=== PATIENT | female | born 1995 | race Caucasian/White ===

== ENCOUNTER 2017-01-26 14:35 | Emergency (ER) | payer OTHER ==
[2017-01-26 15:39] LABS: BASO % 1 % (0-3); EOS # 0.2 x10^3/uL (0.0-0.7); EOS % 2 % (0-3); HEMATOCRIT 38.9 % (36.0-47.0); HEMOGLOBIN 12.7 g/dL (12.0-15.5); LYMPH # 2.7 x10^3/uL (1.0-4.8); LYMPH % 30 % (24-48); MEAN CORPUSCULAR HEMOGLOBIN 27 pg (25-35); MEAN CORPUSCULAR HGB CONC 33 g/dL (31-37); MEAN CORPUSCULAR VOLUME 82 fL (79-100); MONO # 0.6 x10^3/uL (0.0-1.1); MONO % 6 % (0-9); NEUT # 5.4 x10^3uL (1.8-7.7); NEUT % 61 % (31-73); PLATELET COUNT 319 x10^3/uL (140-400); RED BLOOD COUNT 4.75 x10^6/uL (3.50-5.40); RED CELL DISTRIBUTION WIDTH 15.6 % (11.5-14.5); WHITE BLOOD COUNT 8.9 x10^3/uL (4.0-11.0)
[2017-01-26 15:47] LABS: BACTERIA,URINE FEW /HPF (0-FEW); BILIRUBIN,URINE NEG (NEG); CLARITY,URINE HAZY; COLOR,URINE YELLOW; GLUCOSE,URINE NEG (NEG); NITRITE,URINE NEG (NEG); RBC,URINE 0 /HPF (0-2); SQUAMOUS EPITHELIAL CELL,UR OCC /LPF; UROBILINOGEN,URINE 0.2 mg/dL (0.2 mg/dL)
[2017-01-26 15:48] LABS: AMORPHOUS SEDIMENT,UR PRESENT /HPF
--- NOTE | 2017-01-26 16:46 | RAD ---
Examination: Ultrasound abdomen limited History: History of right upper quadrant pain. Comparison: None available Findings: The gallbladder is mildly distended. The liver measures 18.5 cm The right kidney measures 13.4 cm in length The pancreas, IVC, aorta are not well-visualized due to bowel gas and due to patient body habitus. The gallbladder wall thickness measures 2.2 mm. The common bile duct measures 2.9 mm. Impression: 1. Limited examination due to patient body habitus. Grossly no evidence of gallstones identified in the gallbladder.
[2017-01-26 17:09] LABS: ALBUMIN 3.5 g/dL (3.4-5.0); ALBUMIN/GLOBULIN RATIO 0.9 (1.0-1.7); CALCIUM 9.2 mg/dL (8.5-10.1); CREATININE 0.7 mg/dL (0.6-1.0); GFR 106.7; TOTAL BILIRUBIN 0.4 mg/dL (0.2-1.0); TOTAL PROTEIN 7.6 g/dL (6.4-8.2)
--- NOTE | 2017-01-26 17:34 | PHYS DOC ---
Adult General Chief Complaint Chief Complaint: ABDOMINAL PAIN HPI HPI Patient is a 21-year-old female with complaints of upper abdominal pain, patient is concerned she may have some gallstones. Patient has had a recent CT that was read as nothing acute however she was told that she has a minor liver enzymes. Patient is already being worked out for these problems by her PCP and they're arranging for a follow-up with a specialist. Review of Systems Review of Systems Constitutional: Denies fever or chills [] Eyes: Denies change in visual acuity, redness, or eye pain [] HENT: Denies nasal congestion or sore throat [] Respiratory: Denies cough or shortness of breath [] Cardiovascular: No chest pain GI: Denies nausea, vomiting, bloody stools or diarrhea . Upper abdominal pain : Denies dysuria or hematuria [] Musculoskeletal: Denies back pain or joint pain [] Integument: Denies rash or skin lesions [] Neurologic: Denies headache, focal weakness or sensory changes [] Physical Exam Physical Exam Constitutional: Well developed, well nourished, no acute distress, non-toxic appearance. Morbidly obese HENT: Normocephalic, atraumatic, oropharynx moist, no oral exudates, nose normal. [] Eyes: EOMI, conjunctiva normal, no discharge. Anicteric Neck: Normal range of motion, no tenderness, supple, no stridor. [] Cardiovascular:Heart rate regular rhythm, no murmur, equal pulses, normal perfusion Lungs & Thorax: Bilateral breath sounds clear to auscultation, no tachypnea Abdomen: Bowel sounds normal, soft, mild tenderness right upper quadrant and epigastric area without guarding or rebound, no masses, no pulsatile masses. [] Skin: Warm, dry, no erythema, no rash. [] Back: No tenderness, no CVA tenderness. [] Extremities: No tenderness, no cyanosis, no clubbing, ROM intact, no edema. [] Neurologic: Alert and oriented X 3, normal motor function, no focal deficits noted. [] Psychologic: Affect normal, judgement normal, mood normal. [] Current Patient Data Lab Results Laboratory Tests Test 01/26/17 15:15 01/26/17 15:32 01/26/17 16:20 White Blood Count 8.9 x10^3/uL (4.0-11.0) Red Blood Count 4.75 x10^6/uL (3.50-5.40) Hemoglobin 12.7 g/dL (12.0-15.5) Hematocrit 38.9 % (36.0-47.0) Mean Corpuscular Volume 82 fL (79-100) Mean Corpuscular Hemoglobin 27 pg (25-35) Mean Corpuscular Hemoglobin Concent 33 g/dL (31-37) Red Cell Distribution Width 15.6 % (11.5-14.5) H Platelet Count 319 x10^3/uL (140-400) Neutrophils (%) (Auto) 61 % (31-73) Lymphocytes (%) (Auto) 30 % (24-48) Monocytes (%) (Auto) 6 % (0-9) Eosinophils (%) (Auto) 2 % (0-3) Basophils (%) (Auto) 1 % (0-3) Neutrophils # (Auto) 5.4 x10^3uL (1.8-7.7) Lymphocytes # (Auto) 2.7 x10^3/uL (1.0-4.8) Monocytes # (Auto) 0.6 x10^3/uL (0.0-1.1) Eosinophils # (Auto) 0.2 x10^3/uL (0.0-0.7) Basophils # (Auto) 0.0 x10^3/uL (0.0-0.2) Urine Collection Type Unknown Urine Color Yellow Urine Clarity Hazy Urine pH 7.5 Urine Specific [place] 1.020 Urine Protein Neg (NEG-TRACE) Urine Glucose (UA) Neg mg/dL (NEG) Urine Ketones (Stick) 15 mg/dL (NEG) Urine Blood Neg (NEG) Urine Nitrite Neg (NEG) Urine Bilirubin Neg (NEG) Urine Urobilinogen Dipstick 0.2 mg/dL (0.2 mg/dL) Urine Leukocyte Esterase Small (NEG) Urine RBC 0 /HPF (0-2) Urine WBC 5-10 /HPF (0-4) Urine Squamous Epithelial Cells Occ /LPF Urine Amorphous Sediment Present /HPF Urine Bacteria Few /HPF (0-FEW) Urine Mucus Slight /LPF POC Urine HCG, Qualitative hcg negative (Negative) Sodium Level 140 mmol/L (136-145) Potassium Level 4.0 mmol/L (3.5-5.1) Chloride Level 104 mmol/L (98-107) Carbon Dioxide Level 26 mmol/L (21-32) Anion Gap 10 (6-14) Blood Urea Nitrogen 8 mg/dL (7-20) Creatinine 0.7 mg/dL (0.6-1.0) Estimated GFR (Cockcroft-Gault) 106.7 BUN/Creatinine Ratio 11 (6-20) Glucose Level 91 mg/dL (70-99) Calcium Level 9.2 mg/dL (8.5-10.1) Total Bilirubin 0.4 mg/dL (0.2-1.0) Aspartate Amino Transferase (AST) 37 U/L (15-37) Alanine Aminotransferase (ALT) 88 U/L (14-59) H Alkaline Phosphatase 73 U/L (46-116) Total Protein 7.6 g/dL (6.4-8.2) Albumin 3.5 g/dL (3.4-5.0) Albumin/Globulin Ratio 0.9 (1.0-1.7) L Lipase 89 U/L (73-393) EKG EKG [] Radiology/Procedures Radiology/Procedures The gallbladder is mildly distended. The liver measures 18.5 cm The right kidney measures 13.4 cm in length The pancreas, IVC, aorta are not well-visualized due to bowel gas and due to patient body habitus. The gallbladder wall thickness measures 2.2 mm. The common bile duct measures 2.9 mm. Impression: 1. Limited examination due to patient body habitus. Grossly no evidence of gallstones identified in the gallbladder. [] Course & Med Decision Making Course & Med Decision Making Pertinent Labs and Imaging studies reviewed. (See chart for details). Discussed with patient and family they agreed to follow up as directed with PCP [] Dragon Disclaimer Dragon Disclaimer This chart was dictated in whole or in part using Voice Recognition software in a busy, high-work load, and often noisy Emergency Department environment. It may contain unintended and wholly unrecognized errors or omissions. Departure Departure: Impression: Primary Impression: Abdominal pain Disposition: 01 HOME, SELF-CARE Condition: STABLE Referrals: ZEINAB RANKIN DO (PCP) Please follow-up with your PCP in one to 2 days for recheck and reevaluation as well as arrange for specialist consult Patient Instructions: Abdominal Pain (Nonspecific) Kate ROMAN MD Jan 26, 2017 17:34
[2017-01-26 17:42] VITALS: BP 121/66
== END 2017-01-26 17:44 | disposition home or self-care (01) ==
LOC: ER 14:40
DX: R10.11 Right upper quadrant pain (principal); R10.13 Epigastric pain
CPT/HCPCS: 36415; 76705; 80053; 81001; 81025; 83690; 85025; 87086; 99285-25

== ENCOUNTER → 2017-02-10 | Outpatient (CLI) | payer OTHER ==
[2017-01-26 17:42] VITALS: BP 121/66
--- NOTE | 2017-02-10 19:03 | RAD ---
CHEST PA LATERAL History: [id number] Acute bronchitis, chest pain, weakness Comparison: January 01, 2016 Findings: There is a lesser degree of inspiration for this exam. There is no new dependent pleural fluid, lobar consolidation, pneumothorax. Cardiac silhouette is stable, within normal limits. Impression: 1. There is poor inspiration for exam, no new infiltrate identified. Electronically signed by: Federico Keenan MD (02/10/2017 6:59 PM) [facility]
== END | disposition home or self-care (01) ==
LOC: RAD 17:32
PROVIDERS: ATTEND Physician Assistant
DX: J20.8 Acute bronchitis due to other specified organisms (principal); R07.9 Chest pain, unspecified
CPT/HCPCS: 71020

== ENCOUNTER 2017-08-20 19:20 | Emergency (ER) | payer OTHER ==
[~2017-08-20] VITALS: Ht 162.6 cm; Wt 156.4 kg
[2017-08-20] MEDS ORDERED: IPRATRPIUM/ALBUTEROL 0.5/2.5MG 3 ML NEBU. ONE (19:37)
--- NOTE | 2017-08-20 19:40 | PHYS DOC ---
Past History Past Medical History: GERD, Other Past Surgical History: Appendectomy, Tonsillectomy Alcohol Use: None Drug Use: None Adult General Chief Complaint Chief Complaint: SHORTNESS OF BREATH HPI HPI Patient is a 22 year old female who presents with complaint of cough, congestion , and sore throat. Patient states her symptoms have been present over the past 2 days. Patient states that she thought at first she was just having trouble with allergies, however when she woke up today she started having worsening thick green mucus with coughing and stated that she is having worsening shortness of breath. Patient states she does have history of asthma and did take albuterol. Patient states she last tried albuterol at 1500 today with minimal relief. Patient states that she is also having muscle soreness, headache , and low-grade fever. Patient states that her sore throat is her primary symptom compared to the other reported symptoms that is giving her the most trouble. Review of Systems Review of Systems Constitutional: Fever[] Eyes: Denies change in visual acuity, redness, or eye pain [] HENT: Sore throat, nasal congestion[] Respiratory: Cough, wheezing, shortness of breath[] Cardiovascular: Denies chest pain or edema[] GI: Denies abdominal pain, nausea, vomiting, bloody stools or diarrhea [] : Denies dysuria or hematuria [] Musculoskeletal: Myalgias[] Integument: Denies rash or skin lesions [] Neurologic: Headache, denies focal weakness or sensory changes [] All other systems were reviewed and found to be within normal limits, except as documented in this note. Allergies Allergies No known drug allergies Physical Exam Physical Exam Constitutional: Alert, afebrile, morbidly obese, appears in mild to moderate discomfort. [] HENT: Normocephalic, atraumatic, bilateral external ears normal, oropharynx erythematous, no oral exudates, thick rhinorrhea. [] Eyes: PERRLA, EOMI, conjunctiva normal, no discharge. [] Neck: Normal range of motion, no tenderness, supple, no stridor. [] Cardiovascular: Tachycardia, regular rhythm, no murmur [] Lungs & Thorax: Moderately restricted air movement bilaterally, faint extremity wheezes bilaterally, no rales[] Abdomen: Bowel sounds normal, soft, no tenderness, no masses, no pulsatile masses. [] Skin: Warm, dry, no erythema, no rash. [] Back: No tenderness, no CVA tenderness. [] Extremities: No tenderness, no cyanosis, no clubbing, ROM intact, no edema. [] Neurologic: Alert and oriented X 3, normal motor function, normal sensory function, no focal deficits noted. [] Current Patient Data Vital Signs Vital Signs Date Time Temp Pulse Resp B/P (MAP) Pulse Ox O2 Delivery O2 Flow Rate FiO2 08/20/17 19:20 99.1 104 20 98 Room Air Lab Results Laboratory Tests Test 08/20/17 19:09 08/20/17 19:35 08/20/17 19:55 08/20/17 19:58 Bedside Urine HCG, Qualitative hcg negative Influenza Type A (Rapid) Negative Influenza Type B (Rapid) Negative Group A Streptococcus Rapid Negative Urine Collection Type Unknown Urine Color Yellow Urine Clarity Turbid Urine pH 6.0 Urine Specific [place] 1.025 Urine Protein 30 mg/dl Urine Glucose (UA) Neg mg/dL Urine Ketones (Stick) >=160 mg/dL Urine Blood Small Urine Nitrite Neg Urine Bilirubin Neg Urine Urobilinogen Dipstick 1 mg/dL Urine Leukocyte Esterase Small Urine RBC 6-10 /HPF Urine WBC 20-40 /HPF Urine Squamous Epithelial Cells Many /LPF Urine Bacteria Many /HPF Urine Mucus Mod /LPF Current Medications Medications (Trade) Dose Ordered Sig/Josias Route PRN Reason Start Time Stop Time Status Last Admin Dose Admin Albuterol/ Ipratropium (Duoneb) 3 ml STK-MED ONCE .ROUTE 08/20/17 19:37 08/20/17 19:38 DC Dexamethasone (Decadron) 12 mg 1X ONCE PO 08/20/17 20:00 08/20/17 20:01 DC 08/20/17 20:22 Albuterol/ Ipratropium (Duoneb) 3 ml 1X ONCE NEB 08/20/17 20:30 08/20/17 20:31 DC 08/20/17 20:24 Albuterol/ Ipratropium (Duoneb) 3 ml 1X ONCE NEB 08/20/17 20:30 08/20/17 20:31 DC 08/20/17 20:25 EKG EKG Not performed[] Radiology/Procedures Radiology/Procedures Two-view chest x-ray interpreted by me: No infiltrate, no effusions, normal cardiac silhouette[] Course & Med Decision Making Course & Med Decision Making Pertinent Labs and Imaging studies reviewed. (See chart for details) Patient was given 12 mg of oral Decadron and 2 DuoNeb nebulized breathing treatments in the emergency department with improvement in symptoms. Patient's chest x-ray was negative for pneumonia and patient's throat and nasal swabs were both negative. The patient's urinalysis does suggest findings of urinary tract infection given leukocytes and positive leukoesterase. This may be due to contamination as there is a high number of squamous cells. I have agreed to start patient on Keflex for treatment after speaking with the patient. I will also prescribe prednisone for treatment of asthma exacerbation likely due to viral upper respiratory infection. Advise follow-up in 2 days a primary doctor for reevaluation. Recommended return emergency department for any worsening symptoms. Patient was understanding and in agreement with treatment plan. Dragon Disclaimer Dragon Disclaimer This electronic medical record was generated, in whole or in part, using a voice recognition dictation system. Departure Departure: Impression: Primary Impression: Asthma exacerbation Additional Impression: Urinary tract infection Disposition: HOME, SELF-CARE Condition: IMPROVED Referrals: ZEINAB RANKIN DO (PCP) Patient Instructions: Asthma, Adult, Urinary Tract Infection Additional Instructions: Follow-up with your primary doctor in 2 days for reevaluation. You may use your albuterol inhaler 2-4 puffs every 4 hours while awake over the next 2 days, then decrease to 2 puffs every 4 hours as needed after that. Return to emergency department for any worsening symptoms. Scripts Prednisone (PREDNISONE) 10 Mg Tablet 10 MG PO UD for PREDNISONE TAPER, #39 TAB 0 Refills Take 3 tablets by mouth twice a day for 3 days, then take 2 tablets by mouth twice a day for 3 days, then take 1 tablet by mouth twice a day for 3 days, then take 1 tablet by mouth daily x 3 days, then stop. Prov: MONTSE BRADSHAW MD 08/20/17 Cephalexin (KEFLEX) 500 Mg Capsule 1 CAP PO BID, #14 CAP Prov: MONTSE BRADSHAW MD 08/20/17 Problem Qualifiers Primary Impression: Asthma exacerbation Asthma severity: mild Asthma persistence: persistent Qualified Codes: J45.31 - Mild persistent asthma with (acute) exacerbation Additional Impression: Urinary tract infection Urinary tract infection type: site unspecified Hematuria presence: without hematuria Qualified Codes: N39.0 - Urinary tract infection, site not specified MONTSE BRADSHAW MD Aug 20, 2017 19:40
[2017-08-20] MEDS ORDERED: DEXAMETHASONE 4 MG TABLET PO ONE (20:00)
[2017-08-20 20:05] LABS: INFLUENZA A PATIENT NEGATIVE (NEGATIVE); INFLUENZA B PATIENT NEGATIVE (NEGATIVE)
[2017-08-20] MEDS ORDERED: IPRATRPIUM/ALBUTEROL 0.5/2.5MG 3 ML NEBU. NEB ONE ×2 (20:30)
[2017-08-20 20:41] LABS: BILIRUBIN,URINE NEG (NEG); CLARITY,URINE TURBID; COLOR,URINE YELLOW; GLUCOSE,URINE NEG (NEG)
[2017-08-20 20:42] LABS: NITRITE,URINE NEG (NEG); UROBILINOGEN,URINE 1 mg/dL (0.2 mg/dL)
[2017-08-20 20:43] LABS: BACTERIA,URINE MANY /HPF (0-FEW); SQUAMOUS EPITHELIAL CELL,UR MANY /LPF; WBC,URINE 20-40 /HPF (0-4)
[2017-08-20 20:51] VITALS: BP 131/70
[2017-08-20] MEDS ORDERED: PRED-220 PO (21:03)
[2017-08-20] MEDS ORDERED: CEPH-264 PO (21:03)
--- NOTE | 2017-08-21 07:13 | RAD ---
PROCEDURE: CHEST PA LATERAL CLINICAL INDICATION: cough for 2 days COMPARISON: Previous study from 02/10/2017 FINDINGS: No pneumothorax identified. Cardiac and mediastinal contours unremarkable. No pulmonary consolidation or acute airspace disease. No acute osseous abnormalities identified. IMPRESSION: No pulmonary consolidation or acute airspace disease.
== END 2017-08-20 21:06 | disposition home or self-care (01) ==
LOC: ER 19:29
DX: J45.31 Mild persistent asthma with (acute) exacerbation (principal); N39.0 Urinary tract infection, site not specified; K21.9 Gastro-esophageal reflux disease without esophagitis
CPT/HCPCS: 71046; 81001; 81025; 87070; 87086; 87804; 87880; 94640; 99285; J7620; J8540

== ENCOUNTER 2017-09-02 19:51 | Emergency (ER) | payer OTHER ==
[~2017-09-02] VITALS: Ht 162.6 cm; Wt 156.4 kg
[2017-09-02 19:51] VITALS: BP 115/72
[~2017-09-02 19:51] MED LIST: CEPH-264 PO; PRED-220 PO
--- NOTE | 2017-09-02 19:54 | ED.ADGEN ---
Past History Past Medical History: Anxiety, Asthma, Diabetes Past Surgical History: No Surgical History Alcohol Use: None Drug Use: None Adult General Chief Complaint Chief Complaint ".. I was getting treated for a UTI.. but I got some flank pain...>" I ve taken some Keflex for my UTI twice a day for a week.. it was better ..but the symptoms have come back.. " HPI HPI Patient is a 22 year old female who presents with flank pain and just completed a 7 day course of Keflex twice a day . Pt. denies hx of renal stone or family hx of renal stone. Pt. localized discomfort in Lt. lower flank and supra pubic. No vaginal discharge. States no concerns of STD. Pt. denies any travel, travel or ill contacts. Review of Systems Review of Systems Constitutional: Denies fever or chills [] Eyes: Denies change in visual acuity, redness, or eye pain [] HENT: Denies nasal congestion or sore throat [] Respiratory: Denies cough or shortness of breath [] Cardiovascular: No additional information not addressed in HPI [] GI: Denies abdominal pain, nausea, vomiting, bloody stools or diarrhea [] : Complaints of dysuria or hematuria [] Musculoskeletal: Denies back pain or joint pain [] Integument: Denies rash or skin lesions [] Neurologic: Denies headache, focal weakness or sensory changes [] Endocrine: Denies polyuria or polydipsia [] All other systems were reviewed and found to be within normal limits, except as documented in this note. Family History Family History Non- contributory Current Medications Current Medications Current Medications Medications (Trade) Dose Ordered Sig/Josias Start Time Stop Time Status Last Admin Dose Admin Ceftriaxone Sodium (Rocephin Im) 1 gm 1X ONCE 09/02/17 21:30 09/02/17 21:31 DC 09/02/17 21:25 1 GM Ketorolac Tromethamine (Toradol) 60 mg 1X ONCE 09/02/17 21:30 09/02/17 21:31 DC 09/02/17 21:25 60 MG Trimethoprim/ Sulfamethoxazole (Bactrim Ds) 1 tab 1X ONCE 09/02/17 21:30 09/02/17 21:31 DC 09/02/17 21:24 1 TAB Allergies Allergies Allergies Uncoded Allergies Type Severity Reaction Last Updated Verified UNKNOWN Allergy Unknown 08/20/17 Physical Exam Physical Exam Constitutional: mild distress, non-toxic appearance. [] HENT: Normocephalic, atraumatic, bilateral external ears normal, oropharynx moist, no oral exudates, nose normal. [] Eyes: PERRLA, EOMI, conjunctiva normal, no discharge. [] Neck: Normal range of motion, no tenderness, supple, no stridor. [] Cardiovascular:Heart rate regular rhythm, no murmur [] Lungs & Thorax: Bilateral breath sounds clear to auscultation [] Abdomen: Bowel sounds normal, soft, no tenderness, no masses, no pulsatile masses. [] Obese.. Mild Lt flank tenderness with percussion. Skin: Warm, dry, no erythema, no rash. [] Back: No tenderness, no CVA tenderness. [] Extremities: No tenderness, no cyanosis, no clubbing, ROM intact, no edema. [] Neurologic: Alert and oriented X 3, normal motor function, normal sensory function, no focal deficits noted. [] Psychologic: Affect normal, judgement normal, mood normal. [] Current Patient Data Lab Results Laboratory Tests Test 09/02/17 19:29 09/02/17 20:15 POC Urine HCG, Qualitative hcg negative (Negative) Urine Collection Type Unknown Urine Color Yellow Urine Clarity Hazy Urine pH 5.0 Urine Specific [place] >=1.030 Urine Protein Trace (NEG-TRACE) Urine Glucose (UA) Neg mg/dL (NEG) Urine Ketones (Stick) Neg mg/dL (NEG) Urine Blood Large (NEG) Urine Nitrite Neg (NEG) Urine Bilirubin Neg (NEG) Urine Urobilinogen Dipstick 0.2 mg/dL (0.2 mg/dL) Urine Leukocyte Esterase Small (NEG) Urine RBC 11-20 /HPF (0-2) Urine WBC 1-4 /HPF (0-4) Urine Squamous Epithelial Cells Occ /LPF Urine Bacteria Few /HPF (0-FEW) Urine Mucus Mod /LPF EKG EKG [] Radiology/Procedures Radiology/Procedures [] Course & Med Decision Making Course & Med Decision Making Pertinent Labs and Imaging studies reviewed. (See chart for details). Pt. to follow up urine cultures. Take Bactrim DS twice a day. Return if any concerns. Tylenol and Ibuprofen for discomfort. Follow up with primary. [] Final Impression Final Impression 1. Hematuria 2. Suspect UTI Dif. dx renal colic/ renal stone - symptom however not consistent. [] Problems: Dragon Disclaimer Dragon Disclaimer This electronic medical record was generated, in whole or in part, using a voice recognition dictation system. MANSI HOOD MD Sep 02, 2017 19:54
[2017-09-02 20:49] LABS: CLARITY,URINE HAZY; COLOR,URINE YELLOW
[2017-09-02 20:50] LABS: BACTERIA,URINE FEW /HPF (0-FEW); BILIRUBIN,URINE NEG (NEG); GLUCOSE,URINE NEG (NEG); NITRITE,URINE NEG (NEG); SQUAMOUS EPITHELIAL CELL,UR OCC /LPF; UROBILINOGEN,URINE 0.2 mg/dL (0.2 mg/dL)
[2017-09-02] MEDS ORDERED: SULF1TAB24 PO (21:08)
[2017-09-02] MEDS: SMZ/TMP 800/160MG TABLET. PO ONE (21:24)
[2017-09-02] MEDS: cefTRIAXone IM 1 GM VIAL IM ONE (21:25)
[2017-09-02] MEDS: KETOROLAC 60 MG/2 ML VIAL. IM ONE (21:25)
== END 2017-09-02 21:30 | disposition home or self-care (01) ==
LOC: ER 19:51
DX: R31.9 Hematuria, unspecified (principal); R30.0 Dysuria; R10.9 Unspecified abdominal pain; E11.9 Type 2 diabetes mellitus without complications; F41.9 Anxiety disorder, unspecified; J45.909 Unspecified asthma, uncomplicated
CPT/HCPCS: 81001; 81025; 87086; 96372; 99284; J0696; J1885

== ENCOUNTER → 2017-09-05 | Outpatient (CLI) | payer OTHER ==
[2017-09-02 19:51] VITALS: BP 115/72
[~2017-09-05] MED LIST changes: +SULF1TAB24 PO
--- NOTE | 2017-09-05 16:44 | RAD ---
Indication: Left flank pain and hematuria for one week. Technique: Axial images and coronal and sagittal reformatted images are provided. No comparison is available. One or more of the following individualized dose reduction techniques were utilized for this examination: 1. Automated exposure control 2. Adjustment of the mA and/or kV according to patient size 3. Use of iterative reconstruction technique Findings: The lung bases are clear. There is no pleural effusion. The heart is not enlarged. Solid organ evaluation is limited without contrast. Liver is grossly unremarkable. Gallbladder is absent. Spleen is not enlarged. Pancreas and adrenals are unremarkable. 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 There is no urolithiasis. Neither ureter is dilated. There is no calculus along the expected course of either ureter. Aorta is normal caliber. Lack of oral contrast limits evaluation of bowel. There is no small bowel obstruction or mural thickening. Appendix is not visualized, appear to be findings of a previous appendectomy. Uterus and adnexa are unremarkable. Bladder is unremarkable. Calcified phleboliths are noted. IMPRESSION: 1. No acute abdominal findings. No obstructing or nonobstructing renal calculus. Electronically signed by: Klaus Sandoval MD (09/05/2017 4:41 PM) [id number]
== END | disposition home or self-care (01) ==
LOC: CT 15:55
PROVIDERS: ATTEND Family Medicine
DX: R30.0 Dysuria (principal); I87.8 Other specified disorders of veins
CPT/HCPCS: 74176

== ENCOUNTER 2017-09-10 00:33 | Emergency (ER) | payer OTHER ==
[~2017-09-10] VITALS: Ht 162.6 cm; Wt 156.4 kg
[2017-09-10 00:40] VITALS: BP 115/72
--- NOTE | 2017-09-10 00:43 | ED.ADGEN ---
Past History Past Medical History: Anxiety, Asthma, Diabetes Past Surgical History: No Surgical History Alcohol Use: None Drug Use: None Adult General Chief Complaint Chief Complaint ".. I was here the other day... and you guys put me on Bactrim... then I seen Dr. Marshall.. and she said I had a kidney stone and stop the antibiotics... but CT showed I did not have a kidney stone...Dr. Marshall told me to go back on Keflex because I had a UTI... and I had some blood in my urine today....".. " I did not follow up with Joanna.. because I had things to do today..." HPI HPI Patient is a 22 year old female who presents with above hx and complaints of hematuria. Pt. advised by Dr. Marshall to restart Keflex. Pt. CT review on 09/05- not acute findings. No kidney stone. Pt. has no hx of coagulopathic problems. No history of travel. No history of specific ill contacts. No history immunosuppression. Patient follows with Dr. Marshall for care. Review of Systems Review of Systems Constitutional: Denies fever or chills [] Eyes: Denies change in visual acuity, redness, or eye pain [] HENT: Denies nasal congestion or sore throat [] Respiratory: Denies cough or shortness of breath [] Cardiovascular: No additional information not addressed in HPI [] GI: Denies abdominal pain, nausea, vomiting, bloody stools or diarrhea [] : Denies dysuria. Patient complains of hematuria [] Musculoskeletal: Denies back pain or joint pain [] Integument: Denies rash or skin lesions [] Neurologic: Denies headache, focal weakness or sensory changes [] Endocrine: Denies polyuria or polydipsia [] All other systems were reviewed and found to be within normal limits, except as documented in this note. Family History Family History Noncontributory Current Medications Current Medications Current Medications Medications (Trade) Dose Ordered Sig/Josias Start Time Stop Time Status Last Admin Dose Admin Ceftriaxone Sodium (Rocephin Im) 1 gm 1X ONCE 09/10/17 02:00 09/10/17 02:01 DC 09/10/17 01:56 1 GM See nursing for home meds Allergies Allergies Allergies Coded Allergies Type Severity Reaction Last Updated Verified No Known Drug Allergies 09/10/17 No Physical Exam Physical Exam Constitutional: no acute distress, non-toxic appearance. [] HENT: Normocephalic, atraumatic, bilateral external ears normal, oropharynx moist, no oral exudates, nose normal. [] Eyes: PERRLA, EOMI, conjunctiva normal, no discharge. [] Neck: Normal range of motion, no tenderness, supple, no stridor. [] Cardiovascular:Heart rate regular rhythm, no murmur [] Lungs & Thorax: Bilateral breath sounds clear to auscultation [] Abdomen: Bowel sounds normal, soft, left flank tenderness, no masses, no pulsatile masses. Morbid obesity Skin: Warm, dry, no erythema, no rash. [] Back: No tenderness, no CVA tenderness. [] Extremities: No tenderness, no cyanosis, no clubbing, ROM intact, no edema. [] Neurologic: Alert and oriented X 3, normal motor function, normal sensory function, no focal deficits noted. [] Psychologic: Affect very anxious, judgement normal, mood normal. [] Current Patient Data Vital Signs Vital Signs Date Time Temp Pulse Resp B/P (MAP) Pulse Ox O2 Delivery O2 Flow Rate FiO2 09/10/17 00:40 98.2 77 20 98 Room Air Lab Results Laboratory Tests Test 09/10/17 00:07 09/10/17 00:55 POC Urine HCG, Qualitative hcg negative (Negative) Urine Collection Type Unknown Urine Color Yellow Urine Clarity Hazy Urine pH 5.0 Urine Specific [place] 1.020 Urine Protein Trace (NEG-TRACE) Urine Glucose (UA) Neg mg/dL (NEG) Urine Ketones (Stick) Neg mg/dL (NEG) Urine Blood Large (NEG) Urine Nitrite Neg (NEG) Urine Bilirubin Neg (NEG) Urine Urobilinogen Dipstick 0.2 mg/dL (0.2 mg/dL) Urine Leukocyte Esterase Small (NEG) Urine RBC >40 /HPF (0-2) Urine WBC 5-10 /HPF (0-4) Urine Squamous Epithelial Cells Few /LPF Urine Bacteria Few /HPF (0-FEW) EKG EKG [] Radiology/Procedures Radiology/Procedures Reviewed CT from 09/05[] Course & Med Decision Making Course & Med Decision Making Pertinent Labs and Imaging studies reviewed. (See chart for details). Push fluids. Take tylenol and ibuprofen for pain. Take Keflex as directed. If continued hematuria, consider urology consult. Follow up with Dr. Marshall. [] Final Impression Final Impression 1. Hematuria 2. Hx. of UTI [] Problems: Dragon Disclaimer Dragon Disclaimer This electronic medical record was generated, in whole or in part, using a voice recognition dictation system. MANSI HOOD MD Sep 10, 2017 00:43
[2017-09-10 01:33] LABS: BILIRUBIN,URINE NEG (NEG); COLOR,URINE YELLOW; GLUCOSE,URINE NEG (NEG); NITRITE,URINE NEG (NEG); SQUAMOUS EPITHELIAL CELL,UR FEW /LPF
[2017-09-10 01:34] LABS: CLARITY,URINE HAZY
[2017-09-10 01:35] LABS: UROBILINOGEN,URINE 0.2 mg/dL (0.2 mg/dL)
[2017-09-10 01:36] LABS: BACTERIA,URINE FEW /HPF (0-FEW); RBC,URINE >40 /HPF (0-2)
[2017-09-10] MEDS: cefTRIAXone IM 1 GM VIAL IM ONE (01:56)
== END 2017-09-10 01:57 | disposition home or self-care (01) ==
LOC: ER 00:33
DX: R31.9 Hematuria, unspecified (principal); Z87.440 Personal history of urinary (tract) infections; J45.909 Unspecified asthma, uncomplicated; F41.9 Anxiety disorder, unspecified; E11.9 Type 2 diabetes mellitus without complications
CPT/HCPCS: 81001; 81025; 87086; 96372; 99284; J0696

== ENCOUNTER 2019-07-29 22:16 | Emergency (ER) | payer BC, OTHER ==
[~2019-07-29] VITALS: Ht 162.6 cm; Wt 156.4 kg
[2019-07-29 22:16] VITALS: BP 104/71
[2019-07-29] MEDS ORDERED: LIDO:MAALOX 1:1 20 ML SINGLE DOSE. PO ONE (22:45)
--- NOTE | 2019-07-30 | EKG ---
[address] [address] Test Date: 2019-07-29 Test Time: 22:28:03 Pat Name: MARY PEDRAZA Department: Room: Gender: F Access Specialist: : 1995 Requested By: DAPHNE RENEE Order Number: [id number] Reading MD: Measurements Intervals [place] Rate: 109 P: 50 ND: 158 QRS: 26 QRSD: 86 T: 12 QT: 308 QTc: 416 Interpretive Statements SINUS TACHYCARDIA OTHERWISE NORMAL ECG RI6.01 No previous ECG available for comparison
--- NOTE | 2019-07-30 18:49 | PHYS DOC ---
Past History Past Medical History: Anxiety, Asthma, Depression, Diabetes, GERD Additional Past Medical Histor: fatty liver disease, pcos Past Surgical History: Appendectomy, Cholecystectomy, Tonsillectomy, Other Additional Past Surgical Histo: cataract surgery, dental Alcohol Use: None Drug Use: None Adult General Chief Complaint Chief Complaint: CHEST PAIN HPI HPI Patient is a [] Patient is a 24-year-old female with history of anxiety, PCO S who presents with chest pain. She reports feeling anxious while taking care of her father. 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 Patient reports palpitations, feeling anxious with pain radiating to left shoulder. Eyes nausea shortness of breath sweats. Reports tingling around lips and hands. No medications or therapy sticking prior to ED arrival. Patient arrives a conus accompanied at bedside by her mother. The regular menstrual periods Review of Systems Review of Systems Review symptoms as per history of present illness. All other review symptoms are negative. All other systems were reviewed and found to be within normal limits, except as documented in this note. Current Medications Current Medications Current Medications Medications (Trade) Dose Ordered Sig/Josias Start Time Stop Time Status Last Admin Dose Admin Multi-Ingredient Mouthwash/Gargle (Gi Cocktail) 20 ml 1X ONCE 07/29/19 22:45 07/29/19 23:01 DC 07/29/19 22:47 20 ML Allergies Allergies Allergies Coded Allergies Type Severity Reaction Last Updated Verified No Known Drug Allergies 09/10/17 No Physical Exam Physical Exam Constitutional: Well developed, well nourished, no acute distress, non-toxic appearance. [] HENT: Normocephalic, atraumatic, bilateral external ears normal, oropharynx moist, no oral exudates, nose normal. [] Eyes: PERRLA, EOMI, conjunctiva normal, no discharge. [] Neck: Normal range of motion, no tenderness, supple, no stridor. [] Cardiovascular:Heart rate regular rhythm, no murmur [] Lungs & Thorax: Bilateral breath sounds clear to auscultation [] Abdomen: Bowel sounds normal, soft, no tenderness. [] Skin: Warm, dry, no erythema, no rash. [] Back: No tenderness, no CVA tenderness. [] Extremities: No tenderness, no cyanosis, no clubbing, ROM intact, no edema. [] Neurologic: Alert and oriented X 3, normal motor function, normal sensory function, no focal deficits noted. [] Psychologic: Affect anxious,, judgement normal, mood normal. [] Current Patient Data Vital Signs Vital Signs Date Time Temp Pulse Resp B/P (MAP) Pulse Ox O2 Delivery O2 Flow Rate FiO2 07/29/19 22:16 98.3 103 20 104/71 (82) 96 Room Air EKG EKG [] Radiology/Procedures Radiology/Procedures [] Course & Med Decision Making Course & Med Decision Making Pertinent Labs and Imaging studies reviewed. (See chart for details) [Presentation consistent with anxiety reaction. Recommend follow-up with PCP. ] Dragon Disclaimer Dragon Disclaimer This electronic medical record was generated, in whole or in part, using a voice recognition dictation system. Departure Departure: Impression: Primary Impression: Dyspepsia Additional Impression: Chest pain Disposition: HOME, SELF-CARE Condition: STABLE Patient Instructions: Indigestion, [id number], Chest Pain (Nonspecific)-Brief Additional Instructions: Take reps 20 mg OTC twice daily and Maalox as needed for additional relief. All up with your PCP as soon as possible for reevaluation. Problem Qualifiers DAPHNE RENEE DO Jul 30, 2019 18:49
== END 2019-07-29 23:20 | disposition home or self-care (01) ==
LOC: ER 22:16
DX: R10.13 Epigastric pain (principal); R07.9 Chest pain, unspecified; F41.9 Anxiety disorder, unspecified; J45.909 Unspecified asthma, uncomplicated; F32.9 Major depressive disorder, single episode, unspecified; E11.9 Type 2 diabetes mellitus without complications; K21.9 Gastro-esophageal reflux disease without esophagitis
CPT/HCPCS: 93005; 99283

== ENCOUNTER 2019-08-04 17:29 | Emergency (ER) | payer BC ==
[~2019-08-04] VITALS: Ht 162.6 cm; Wt 155.7 kg
[2019-08-04] MEDS ORDERED: DEXAMETHASONE 4 MG TABLET PO ONE (18:15)
[2019-08-04 18:33] LABS: INFLUENZA A PATIENT NEGATIVE (NEGATIVE); INFLUENZA B PATIENT NEGATIVE (NEGATIVE)
[2019-08-04] MEDS ORDERED: BENZ100C PO (18:56)
--- NOTE | 2019-08-04 18:57 | PHYS DOC ---
Past History Past Medical History: Anxiety, Asthma, Depression, Diabetes, GERD Additional Past Medical Histor: fatty liver disease, pcos Past Surgical History: Appendectomy, Cholecystectomy, Tonsillectomy, Other Additional Past Surgical Histo: cataract surgery, dental Alcohol Use: None Drug Use: None Adult General Chief Complaint Chief Complaint: FLU SYMPTOM HPI HPI Patient is a [age] year old [sex] who presents with [] Review of Systems Review of Systems Constitutional: Denies fever or chills [] Eyes: Denies change in visual acuity, redness, or eye pain [] HENT: Denies nasal congestion or sore throat [] Respiratory: Denies cough or shortness of breath [] Cardiovascular: No additional information not addressed in HPI [] GI: Denies abdominal pain, nausea, vomiting, bloody stools or diarrhea [] : Denies dysuria or hematuria [] Musculoskeletal: Denies back pain or joint pain [] Integument: Denies rash or skin lesions [] Neurologic: Denies headache, focal weakness or sensory changes [] Endocrine: Denies polyuria or polydipsia [] All other systems were reviewed and found to be within normal limits, except as documented in this note. Current Medications Current Medications Current Medications Medications (Trade) Dose Ordered Sig/Josias Start Time Stop Time Status Last Admin Dose Admin Dexamethasone (Decadron) 10 mg 1X ONCE 08/04/19 18:15 08/04/19 18:16 DC Allergies Allergies Allergies Coded Allergies Type Severity Reaction Last Updated Verified levofloxacin Allergy Unknown 08/04/19 Yes morphine Allergy Unknown 08/04/19 Yes Physical Exam Physical Exam Constitutional: Well developed, well nourished, no acute distress, non-toxic appearance. [] HENT: Normocephalic, atraumatic, bilateral external ears normal, oropharynx moist, no oral exudates, nose normal. [] Eyes: PERRLA, EOMI, conjunctiva normal, no discharge. [] Neck: Normal range of motion, no tenderness, supple, no stridor. [] Cardiovascular:Heart rate regular rhythm, no murmur [] Lungs & Thorax: Bilateral breath sounds clear to auscultation [] Abdomen: Bowel sounds normal, soft, no tenderness, no masses, no pulsatile masses. [] Skin: Warm, dry, no erythema, no rash. [] Back: No tenderness, no CVA tenderness. [] Extremities: No tenderness, no cyanosis, no clubbing, ROM intact, no edema. [] Neurologic: Alert and oriented X 3, normal motor function, normal sensory function, no focal deficits noted. [] Psychologic: Affect normal, judgement normal, mood normal. [] Current Patient Data Lab Results Laboratory Tests Test 08/04/19 17:49 Glucose (Fingerstick) 99 mg/dL (70-99) Influenza Type A (Rapid) Negative (NEGATIVE) Influenza Type B (Rapid) Negative (NEGATIVE) EKG EKG [] Radiology/Procedures Radiology/Procedures [] Course & Med Decision Making Course & Med Decision Making Pertinent Labs and Imaging studies reviewed. (See chart for details) [] Dragon Disclaimer Dragon Disclaimer This electronic medical record was generated, in whole or in part, using a voice recognition dictation system. Departure Departure: Impression: Primary Impression: Bronchitis Disposition: 01 HOME, SELF-CARE Condition: STABLE Referrals: STEPHANIE MENDOSA MD (PCP) Patient Instructions: Acute Bronchitis, [id number] Additional Instructions: Use over the counter remedies as needed for cold and cough symptoms. Use humidifier at night when sleeping. Scripts Benzonatate (TESSALON PERLE) 100 Mg Capsule 1 CAP PO TID PRN for COUGH, #30 CAP Prov: SANJAY BAHENA DO 08/04/19 SANJAY BAHENA DO Aug 04, 2019 18:57
[2019-08-04 19:00] VITALS: BP 120/78
--- NOTE | 2019-08-04 19:56 | RAD ---
EXAM: PA and Lateral Views of the Chest DATE: 08/04/2019 5:37 PM INDICATION: Cough, congestion, fever COMPARISON: No Prior FINDINGS: The heart is not enlarged. Mediastinal and hilar contours are normal. No focal parenchymal airspace opacity. No pleural effusion or pneumothorax. IMPRESSION: 1. No radiographic evidence for acute cardiopulmonary process. Electronically signed by: Tommie Valdes MD (08/04/2019 7:53 PM) [id number]
== END 2019-08-04 19:05 | disposition home or self-care (01) ==
LOC: ER 17:29
DX: J45.909 Unspecified asthma, uncomplicated (principal); E11.9 Type 2 diabetes mellitus without complications; K21.9 Gastro-esophageal reflux disease without esophagitis; Z90.89 Acquired absence of other organs; Z88.1 Allergy status to other antibiotic agents; Z88.5 Allergy status to narcotic agent
CPT/HCPCS: 71046; 82947; 87804; 99284; J8540

== ENCOUNTER 2020-07-25 21:00 | Emergency (ER) | payer SELFPAY ==
[~2020-07-25] VITALS: Ht 162.6 cm; Wt 155.7 kg
[~2020-07-25 21:00] MED LIST changes: +BENZ100C PO
[2020-07-25 21:05] VITALS: BP 133/84
--- NOTE | 2020-07-25 21:53 | PHYS DOC ---
Past History Past Medical History: Anxiety, Asthma, Depression, Diabetes, GERD Additional Past Medical Histor: fatty liver disease, pcos Past Surgical History: Appendectomy, Cholecystectomy, Tonsillectomy, Other Additional Past Surgical Histo: cataract surgery, dental Smoking: Non-smoker Alcohol Use: None Drug Use: None Adult General Chief Complaint Chief Complaint: FACE PAIN HPI HPI Patient is a 25-year-old female who presents with nose pain. States she was putting her groceries in the refrigerator when a small radial fell off the top of the refrigerator and hit her nose. Denies any syncope, headache, changes in vision, bloody nose, neck pain. Review of Systems Review of Systems Review of systems otherwise unremarkable except noted in HPI Allergies Allergies Allergies Coded Allergies Type Severity Reaction Last Updated Verified Sulfa (Sulfonamide Antibiotics) Allergy Unknown 07/25/20 Yes levofloxacin Allergy Unknown 08/04/19 Yes morphine Allergy Unknown 08/04/19 Yes Physical Exam Physical Exam Constitutional: Well developed, well nourished, no acute distress, non-toxic appearance. [] HENT: Normocephalic, atraumatic, bilateral external ears normal, oropharynx moist, no oral exudates, nose with no deformity, bruising, swelling, epistaxis or septal hematoma. Mild tenderness at the base.] Eyes: PERRLA, EOMI, conjunctiva normal, no discharge. [] Neck: Normal range of motion, no tenderness, supple, no stridor. [] Extremities: No tenderness, no cyanosis, no clubbing, ROM intact, no edema. [] Neurologic: Alert and oriented X 3, normal motor function, normal sensory function, no focal deficits noted. [] Psychologic: Affect normal, judgement normal, mood normal. [] Current Patient Data Vital Signs Vital Signs Date Time Temp Pulse Resp B/P (MAP) Pulse Ox O2 Delivery O2 Flow Rate FiO2 07/25/20 21:05 97.5 80 16 133/84 (100) 99 Room Air EKG EKG [] Radiology/Procedures Radiology/Procedures [] Heart Score Risk Factors: Risk Factors: DM, Current or recent (<one month) smoker, HTN, HLP, family history of CAD, obesity. Risk Scores: Risk Factors: DM, Current or recent (<one month) smoker, HTN, HLP, family history of CAD, obesity. Course & Med Decision Making Course & Med Decision Making Patient is a 25-year-old female presents with nose pain Vital signs not concerning. Physical exam noted above. Patient denied ice pack, Tylenol or ibuprofen as she stated that she was in pain hospital prices for these. Discussed findings with patient and recommended ice, Tylenol and ibuprofen at home. Follow-up with primary care physician. Gave return precautions to the ED . Patient grateful, verbalized understanding and agreed with plan of discharge. [] Dragon Disclaimer Dragon Disclaimer This electronic medical record was generated, in whole or in part, using a voice recognition dictation system. Departure Departure: Disposition: 01 DC HOME SELF CARE/HOMELESS Condition: GOOD Referrals: DARIUS DAS (PCP) Additional Instructions: You were seen in the emergency department for trauma to your nose. You have no deformities, bruising, swelling. Both of your nares are patent and you have no septal hematoma as discussed. You have no blood in your nares either. Please continue use ice, Tylenol and ibuprofen as needed. Please call your primary care as needed. Please come back to the ED with new or concerning symptoms as discussed. NIKO CUELLO MD Jul 25, 2020 21:53
== END 2020-07-25 22:05 | disposition home or self-care (01) ==
LOC: ER 21:00
DX: R51.9 Headache, unspecified (principal); F41.9 Anxiety disorder, unspecified; F32.9 Major depressive disorder, single episode, unspecified; J45.909 Unspecified asthma, uncomplicated; E11.9 Type 2 diabetes mellitus without complications; K21.9 Gastro-esophageal reflux disease without esophagitis; Z90.89 Acquired absence of other organs; Z90.49 Acquired absence of other specified parts of digestive tract; Z98.890 Other specified postprocedural states; Z88.2 Allergy status to sulfonamides; Z88.6 Allergy status to analgesic agent; Z88.8 Allergy status to other drugs, medicaments and biological substances
CPT/HCPCS: 99282

== ENCOUNTER 2020-12-25 19:56 | Emergency (ER) | payer SELFPAY ==
[~2020-12-25] VITALS: Ht 162.6 cm; Wt 179.7 kg
[2020-12-25] MEDS ORDERED: CEPH500C PO (21:11)
--- NOTE | 2020-12-25 21:12 | PHYS DOC ---
Past History Past Medical History: Anxiety, Asthma, Depression, Diabetes, GERD Additional Past Medical Histor: fatty liver disease, pcos Past Surgical History: Appendectomy, Cholecystectomy, Tonsillectomy, Other Additional Past Surgical Histo: cataract surgery, dental Smoking: Non-smoker Alcohol Use: None Drug Use: None Adult General Chief Complaint Chief Complaint: SKIN PROBLEM HPI HPI Patient is a 25-year-old female who presents with a chief complaint of insect bite to the inner left thigh that she noticed yesterday. States has a sharp burning pain, 6 out of 10 with no radiation. Denies any fevers, abdominal pain, nausea, vomiting. Review of Systems Review of Systems Review of systems otherwise unremarkable except noted in HPI Allergies Allergies Allergies Coded Allergies Type Severity Reaction Last Updated Verified Sulfa (Sulfonamide Antibiotics) Allergy Unknown 07/25/20 Yes levofloxacin Allergy Unknown 08/04/19 Yes morphine Allergy Unknown 08/04/19 Yes Physical Exam Physical Exam Constitutional: Well developed, well nourished, no acute distress, non-toxic appearance. [] Cardiovascular:Heart rate regular rhythm, no murmur [] Lungs & Thorax: Bilateral breath sounds clear to auscultation [] Extremities: Mild tenderness, redness and induration at upper left middle thigh with no fluctuation. Neurologic: Alert and oriented X 3, no focal deficits noted. [] Psychologic: Affect normal, judgement normal, mood normal. [] Current Patient Data Vital Signs Vital Signs Date Time Temp Pulse Resp B/P (MAP) Pulse Ox O2 Delivery O2 Flow Rate FiO2 12/25/20 20:27 98.4 76 20 112/76 (88) 99 Room Air EKG EKG [] Radiology/Procedures Radiology/Procedures [] Heart Score C/O Chest Pain: No Risk Factors: Risk Factors: DM, Current or recent (<one month) smoker, HTN, HLP, family history of CAD, obesity. Risk Scores: Risk Factors: DM, Current or recent (<one month) smoker, HTN, HLP, family history of CAD, obesity. Course & Med Decision Making Course & Med Decision Making Patient is a 25-year-old female presents with insect bite Vital signs not concerning. Physical exam noted above. Started on pain medicine and antibiotics in the ED. Gave recommendations for pain management at home. Advised to take all antibiotics as prescribed. Advised to follow-up in the morning with primary care physician. Gave return precautions to the ED. Patient grateful, verbalized understanding and agreed with plan of discharge. [] Dragon Disclaimer Dragon Disclaimer This electronic medical record was generated, in whole or in part, using a voice recognition dictation system. Departure Departure: Impression: Primary Impression: Cellulitis Disposition: HOME / SELF CARE / HOMELESS Condition: GOOD Referrals: DARIUS DAS (PCP) Patient Instructions: Cellulitis Additional Instructions: Thank you for coming into the emergency department tonight and allowing us to take care of you. Please read all the attached information about to go back over things we discussed. Please take your antibiotics as prescribed. Please wear appropriate clothing and keep it bandaged as to not irritate as we discussed. You can use Tylenol ibuprofen at home as needed and tolerated. Please call your primary care in the morning to update on ED visit and set up follow-up. You are given contact information for other free clinics in the area as well. Please come back to the ED with new or concerning symptoms as discussed. Scripts Cephalexin (CEPHALEXIN) 500 Mg Capsule 1 CAP PO TID for cellulitis for 5 Days, #15 CAP Prov: NIKO CUELLO MD 12/25/20 NIKO CUELLO MD Dec 25, 2020 21:12
[2020-12-25] MEDS ORDERED: oxyCODONE/APAP 5/325 1 TAB TABLET PO ONE (21:15)
[2020-12-25] MEDS ORDERED: CEPHALEXIN 250 MG CAPSULE PO ONE (21:15)
[2020-12-25 21:25] VITALS: BP 114/70
== END 2020-12-25 21:30 | disposition home or self-care (01) ==
LOC: ER 19:56
DX: S70.362A Insect bite (nonvenomous), left thigh, initial encounter (principal); L03.116 Cellulitis of left lower limb; J45.909 Unspecified asthma, uncomplicated; E11.9 Type 2 diabetes mellitus without complications; Z88.2 Allergy status to sulfonamides; Z88.1 Allergy status to other antibiotic agents; Z88.5 Allergy status to narcotic agent; W57.XXXA Bitten or stung by nonvenomous insect and other nonvenomous arthropods, initial encounter; Y93.89 Activity, other specified; Y92.89 Other specified places as the place of occurrence of the external cause; Y99.8 Other external cause status; K21.9 Gastro-esophageal reflux disease without esophagitis
CPT/HCPCS: 99283